=== PATIENT | male | born 1950 | race Caucasian/White ===

== ENCOUNTER 2019-05-07 19:27 | Emergency (ER) | payer BC, MEDICARE ==
[~2019-05-07] VITALS: Ht 175.3 cm; Wt 75.3 kg
[2019-05-07 20:14] LABS: Basophils # (auto) 0 uL; Eosinophils # (auto) 0.2 uL; Lymphocytes # (auto) 1.3 uL; Monocytes # (auto) 0.5 uL
[2019-05-07 20:15] LABS: Basophils % (auto) 0.7 % (0.0-2.0); Eosinophils % (auto) 3.7 % (0.0-7.0); Hematocrit 38.9 % (41.0-53.0); Hemoglobin 13.2 g/dL (13.5-17.5); Lymphocytes % (auto) 27.3 % (10.0-50.0); Mean Corpuscular Hemoglobin 33.9 pg (28.0-32.0); Mean Corpuscular Hgb Conc. 33.8 g/dL (32.0-36.0); Mean Corpuscular Volume 100.3 fL (80.0-100.0); Monocytes % (auto) 9.3 % (0.0-12.0); Neutrophils # (auto) 2.9 uL; Nucleated Red Blood Cells % 0.3 %; Platelet Count (auto) 75 10^3/uL (140-450); Red Blood Cells 3.88 10^6/uL (4.5-5.90); Red Cell Distribution Width 14.4 % (11.8-14.3); White Blood Cell 4.9 10^3/uL (4.4-10.8)
[2019-05-07 20:46] LABS: Albumin 3.1 g/dL (3.4-5.0); BUN/Creatinine Ratio 13.5; Bilirubin, Total 1.2 mg/dL (0.2-1.0); Calcium 8.7 mg/dL (8.5-10.1); Total Protein 7.9 g/dL (6.4-8.2)
[2019-05-07 23:35] VITALS: BP 184/87
[2019-05-08] MEDS ORDERED: ONDANSETRON HCL 4 MG/2 ML VIAL IV ONE (00:15)
[2019-05-08] MEDS ORDERED: MORPHINE SULFATE 4 MG/ML SYR/VIAL IV ONE (00:15)
[2019-05-08] MEDS ORDERED: IOHEXOL 300 MG/ML 100ML BOTTLE IJ ONE (00:21)
[2019-05-08 01:33] LABS: Urine Bacteria NONE SEEN /hpf (None Seen); Urine Blood TRACE /uL (Negative); Urine WBC <1 /hpf (0 - 3)
[2019-05-08] MEDS ORDERED: cloNIDine HCL 0.1 MG TAB PO ONE (01:45)
== END 2019-05-08 02:53 | disposition home or self-care (01) ==
LOC: ER 19:37
DX: K70.31 Alcoholic cirrhosis of liver with ascites (principal); K42.9 Umbilical hernia without obstruction or gangrene; R16.0 Hepatomegaly, not elsewhere classified
CPT/HCPCS: 36415; 74176; 74177; 80053; 80320; 81001; 83690; 85025; 96374; 96375; 99284; J2270; J2405; Q9967

== ENCOUNTER → 2019-06-17 | Outpatient (CLI) | payer BC, MEDICARE ==
[2019-06-17 08:34] LABS: Basophils # (auto) 0 uL; Basophils % (auto) 0.6 % (0.0-2.0); Eosinophils # (auto) 0.1 uL; Eosinophils % (auto) 1.5 % (0.0-7.0); Hematocrit 38.5 % (41.0-53.0); Hemoglobin 13.1 g/dL (13.5-17.5); Lymphocytes # (auto) 1.7 uL; Lymphocytes % (auto) 23.5 % (10.0-50.0); Mean Corpuscular Hemoglobin 33.7 pg (28.0-32.0); Mean Corpuscular Hgb Conc. 34.1 g/dL (32.0-36.0); Mean Corpuscular Volume 98.7 fL (80.0-100.0); Monocytes # (auto) 0.8 uL; Monocytes % (auto) 10.6 % (0.0-12.0); Neutrophils # (auto) 4.7 uL; Neutrophils % (auto) 63.8 % (37.0-80.0); Nucleated Red Blood Cells % 0.1 %; Platelet Count (auto) 93 10^3/uL (140-450); Red Blood Cells 3.91 10^6/uL (4.5-5.90); Red Cell Distribution Width 14.3 % (11.8-14.3); White Blood Cell 7.4 10^3/uL (4.4-10.8)
[2019-06-17 08:44] LABS: Albumin 2.9 g/dL (3.4-5.0); Calcium 8.8 mg/dL (8.5-10.1); Potassium 4.6 mmol/L (3.5-5.1)
[2019-06-17 08:47] LABS: Bilirubin, Total 1.9 mg/dL (0.2-1.0); Total Protein 8.3 g/dL (6.4-8.2)
== END | disposition home or self-care (01) ==
LOC: LAB 08:09
PROVIDERS: ATTEND Internal Medicine
DX: I10 Essential (primary) hypertension (principal)
CPT/HCPCS: 36415; 80053; 85025

== ENCOUNTER 2019-07-02 10:12 | Inpatient (IN) | payer BC, MEDICARE ==
[~2019-07-02] VITALS: Ht 175.3 cm; Wt 71.8 kg
[2019-07-02 11:43] LABS: Basophils # (auto) 0 uL; Basophils % (auto) 0.5 % (0.0-2.0); Eosinophils # (auto) 0.1 uL; Eosinophils % (auto) 0.6 % (0.0-7.0); Hemoglobin 13.6 g/dL (13.5-17.5); Lymphocytes # (auto) 1.2 uL; Lymphocytes % (auto) 15.4 % (10.0-50.0); Mean Corpuscular Hemoglobin 33.4 pg (28.0-32.0); Mean Corpuscular Hgb Conc. 33.9 g/dL (32.0-36.0); Mean Corpuscular Volume 98.4 fL (80.0-100.0); Monocytes # (auto) 0.7 uL; Monocytes % (auto) 8.3 % (0.0-12.0); Neutrophils % (auto) 75.2 % (37.0-80.0); Nucleated Red Blood Cells % 0.2 %; Platelet Count (auto) 91 10^3/uL (140-450); Red Blood Cells 4.07 10^6/uL (4.5-5.90); Red Cell Distribution Width 14.9 % (11.8-14.3)
[2019-07-02] MEDS ORDERED: SODIUM CHLORIDE 0.9% 1,000 ML IVB ONE (11:53)
[2019-07-02 13:31] LABS: Alanine Aminotransferase 56 U/L (16-61); Albumin 2.6 g/dL (3.4-5.0); Anion Gap 6 (5-15); Aspartate Aminotransferase 177 U/L (15-37); BUN/Creatinine Ratio 18.9; Blood Urea Nitrogen 44 mg/dL (7-18); Calcium 9.1 mg/dL (8.5-10.1); Carbon Dioxide 25 mmol/L (21-32); Chloride 104 mmol/L (98-107); GFR African American 36 mL/min; GFR Non-African American 30 mL/min; Glucose 124 mg/dL (74-106); Potassium 4.8 mmol/L (3.5-5.1); Sodium 135 mmol/L (136-145)
[2019-07-02 13:37] LABS: Alkaline Phosphatase 103 U/L (45-117); Bilirubin, Total 1.7 mg/dL (0.2-1.0); Total Protein 8.6 g/dL (6.4-8.2)
[2019-07-02 13:40] LABS: Magnesium 2.2 mg/dL (1.6-2.6)
[2019-07-02 14:11] LABS: Urine WBC None Seen /hpf (0 - 3)
[2019-07-02 14:41] LABS: Urine Bacteria FEW /hpf (None Seen); Urine Blood Negative /uL (Negative); Urine Hyaline Cast MANY /lpf (0 - 2); Urine Mucus FEW (None Seen); Urine Specific Gravity 1.018 (1.001-1.035)
[2019-07-02] MEDS ORDERED: LACTULOSE 20Gm/30ML SOLN PO ONE (14:45)
[2019-07-02] MEDS ORDERED: NITROGLYCERIN 0.4 MG SL TAB SL PRN (15:30)
[2019-07-02] MEDS ORDERED: MORPHINE SULF INJ 2 MG/ML SYRINGE 1ML IV PRN ×2 (15:30)
[2019-07-02] MEDS ORDERED: ACETAMINOPHEN 500 MG TAB PO PRN (15:30)
[2019-07-02] MEDS ORDERED: ONDANSETRON HCL 4 MG/2 ML VIAL IV PRN (15:30)
[2019-07-02] MEDS: SODIUM CHLORIDE 0.9% 1,000 ML IV SCH (17:19)
[2019-07-02] MEDS: LACTULOSE 20Gm/30ML SOLN PO SCH (18:18)
--- NOTE | 2019-07-02 19:25 | NUR ---
Opening Shift Note Assumed care of patient, Patient standing in bathroom with Tele box and gown off, Patient cleaning vomit off of his chest. Patient stated he ate a sandwich and threw it up. Assisted patient in cleaning up, helped patient back to bed reapplied tele box and clean gown. Alert x3 no S/S of distress/SOB on room air. Denies pain. Patient has large ABD, patient will have possible paracentesis. Oncology consult for hepatic cancer pending. Bed locked in lowest position call light within reach bed alarm on. Instructed on POC and to call for assist PRN, will continue to monitor for changes PRN.
[2019-07-02 22:03] VITALS: BP 104/60
[2019-07-03] MEDS: LACTULOSE 20Gm/30ML SOLN PO SCH ×4 (00:02→18:01)
[2019-07-03] MEDS: SODIUM CHLORIDE 0.9% 1,000 ML IV SCH ×3 (03:00→18:01)
[2019-07-03 04:47] VITALS: BP 105/64
--- NOTE | 2019-07-03 05:19 | NUR ---
BM Patient had BM accidently in bed. Patient's own clothing/ pants placed in bag, put in side dresser. Assisted patient with cleaning up BM. Complete bedding and gown change. Patient back in bed with bed alarm.
--- NOTE | 2019-07-03 06:50 | NUR ---
PATIENT AMBULATED TO BATHROOM WITH STEADY GAIT RN STANDBY ASSISTANCE.
[2019-07-03 07:02] LABS: Alanine Aminotransferase 52 U/L (16-61); Albumin 2.4 g/dL (3.4-5.0); Anion Gap 11 (5-15); Blood Urea Nitrogen 41 mg/dL (7-18); Calcium 8.2 mg/dL (8.5-10.1); Carbon Dioxide 19 mmol/L (21-32); Chloride 107 mmol/L (98-107); GFR African American 47 mL/min; GFR Non-African American 38 mL/min; Glucose 80 mg/dL (74-106); Lipase 68 U/L (73-393); Potassium 4.1 mmol/L (3.5-5.1); Sodium 137 mmol/L (136-145)
[2019-07-03 07:05] LABS: Alkaline Phosphatase 103 U/L (45-117); Aspartate Aminotransferase 162 U/L (15-37); Bilirubin, Total 1.6 mg/dL (0.2-1.0)
[2019-07-03 08:00] VITALS: BP 113/62
[2019-07-03 09:18] LABS: INR 1.48 (0.9-1.15); Partial Thromboplastin Time 32.5 sec (23.64-32.05)
[2019-07-03] MEDS: FAMOTIDINE 20 MG TAB PO SCH (09:31)
[2019-07-03 12:00] VITALS: BP 116/74
[2019-07-03 13:13] LABS: Hepatitis B Core IgM Negative
[2019-07-03 13:20] LABS: Hepatitis B Surface Antigen Negative (Negative)
[2019-07-03 13:22] LABS: Hepatitis C Antibody Positive (Negative)
[2019-07-03 17:00] VITALS: BP 119/77
--- NOTE | 2019-07-03 17:15 | NUR ---
PT REPORTS THAT HE WALKS FINE AND DOES NOT NEED P.T.
--- NOTE | 2019-07-03 19:30 | NUR ---
Opening Shift Note Assumed care of patient. Patient is awake and alert. No S/S of distress/SOB or pain. Instructed on POC and to call for assist PRN, will continue to monitor for changes. Bed locked in lowest position and bed rails up x2. Call light within reach.
[2019-07-03 22:00] VITALS: BP 111/64
--- NOTE | 2019-07-03 23:40 | NUR ---
Medication held Lactulose medication held. Patient mentioned that he needed to use a restroom again and make a bowel movement. He also mentioned that he has had frequent loose bowel movements today. Addendum: 07/04/19 at 0036 by MARY DUBON RN RN Patient agreed to take his next dose due in the a.m. Lactulose level currently at 30. Will continue to monitor for changes.
--- NOTE | 2019-07-04 | NUR ---
Upon entrance of room, patient was standing near bed and stated "my iv came out". IV was no longer intact and pressure was applied to IV site to control bleeding.
[2019-07-04 05:00] VITALS: BP 111/68
[2019-07-04] MEDS: SODIUM CHLORIDE 0.9% 1,000 ML IV SCH ×2 (06:04→16:00)
[2019-07-04] MEDS: LACTULOSE 20Gm/30ML SOLN PO SCH ×4 (06:04→18:27)
[2019-07-04 06:11] LABS: Basophils # (auto) 0 uL; Eosinophils # (auto) 0 uL; Eosinophils % (auto) 0.7 % (0.0-7.0); Hemoglobin 12.2 g/dL (13.5-17.5); Mean Corpuscular Hemoglobin 33.8 pg (28.0-32.0); Mean Corpuscular Hgb Conc. 33.2 g/dL (32.0-36.0); Mean Corpuscular Volume 101.7 fL (80.0-100.0); Monocytes # (auto) 0.4 uL; Platelet Count (auto) 70 10^3/uL (140-450); Red Cell Distribution Width 15.4 % (11.8-14.3)
[2019-07-04 06:14] LABS: Albumin 2.4 g/dL (3.4-5.0); Basophils % (auto) 0.8 % (0.0-2.0); Calcium 8.5 mg/dL (8.5-10.1); Hematocrit 36.7 % (41.0-53.0); Magnesium 2.5 mg/dL (1.6-2.6); Monocytes % (auto) 7.3 % (0.0-12.0); Neutrophils # (auto) 4.5 uL; Neutrophils % (auto) 75.2 % (37.0-80.0); Nucleated Red Blood Cells % 0.2 %; Red Blood Cells 3.61 10^6/uL (4.5-5.90)
[2019-07-04 06:17] LABS: Bilirubin, Total 1.9 mg/dL (0.2-1.0); Total Protein 8.3 g/dL (6.4-8.2)
[2019-07-04 06:26] LABS: INR 1.41 (0.9-1.15)
--- NOTE | 2019-07-04 07:50 | NUR ---
OPENING NOTE Assumed care of patient from NOC RN, Alejandro. Patient awake and alert with no S/S of distress/SOB. C/O of abdominal pain 8/10 on adult pain scale, explained pain medication will likely not help with pain since pain is secondary to ascites. Patient agreed. Helped patient reposition self, states helped some with discomfort. Instructed on POC and to call for assistance PRN, verbalized understanding. Bed in lowest, locked position with side rails up x2. Fall precautions in place and call light within reach. Will continue to monitor for changes Q1hr and PRN.
[2019-07-04 09:00] VITALS: BP 107/69
--- NOTE | 2019-07-04 09:51 | NUR ---
OFF UNIT Patient taken off unit via wheelchair for paracentesis. No S/S of distress noted.
--- NOTE | 2019-07-04 10:20 | NUR ---
PTIN ULTRASOUND FOR A PARACENTESIS BY DR PUCKETT. VSS 136/79-71-18-92%. 1035: 119/56-72-18-92%. 1050: 115/68-67-17-95%. FINISHED WITH PROCEDURE. PT TOLERATED WELL. 7500 ML OF ASCITES FLUID REMOVED.
[2019-07-04] MEDS ORDERED: SODIUM CHLORIDE 0.9% 1,000 ML IV SCH (11:15)
[2019-07-04] MEDS: FAMOTIDINE 20 MG TAB PO SCH (11:52)
[2019-07-04 13:00] VITALS: BP 124/73
--- NOTE | 2019-07-04 13:27 | NUR ---
ROUNDS Patient resting in bed, daughter at bedside. No S/S of distress noted.
--- NOTE | 2019-07-04 16:43 | NUR ---
ROUNDS Patient resting in bed watching television, no S/S of distress noted. Will continue to monitor.
[2019-07-04 17:16] VITALS: BP 105/76
--- NOTE | 2019-07-04 19:33 | NUR ---
CLOSING NOTE Endorsed care of patient to NOC Zenaida SAINI.
[2019-07-04 22:00] VITALS: BP 121/81
[2019-07-04] MEDS: SODIUM BICARBONATE 650 MG TAB PO SCH (22:50)
[2019-07-05] MEDS: LACTULOSE 20Gm/30ML SOLN PO SCH ×4 (00:25→18:40)
[2019-07-05 05:44] VITALS: BP 111/63
[2019-07-05 06:40] LABS: Albumin 2.3 g/dL (3.4-5.0); Calcium 8.4 mg/dL (8.5-10.1); Potassium 3.7 mmol/L (3.5-5.1)
[2019-07-05 06:44] LABS: BUN/Creatinine Ratio 24.2; Bilirubin, Total 1.5 mg/dL (0.2-1.0); Total Protein 8.1 g/dL (6.4-8.2)
--- NOTE | 2019-07-05 07:30 | NUR ---
Opening Shift Note Assumed care of patient, awake and alert. No S/S of distress/SOB or pain. Instructed on POC and to call for assist PRN, will continue to monitor for changes Q1hr and PRN.
[2019-07-05 09:00] VITALS: BP 120/73
[2019-07-05] MEDS: SODIUM BICARBONATE 650 MG TAB PO SCH ×2 (09:11→22:03)
[2019-07-05] MEDS: FAMOTIDINE 20 MG TAB PO SCH (09:11)
--- NOTE | 2019-07-05 10:00 | NUR ---
IV removal IV DC'd with clean sterile technique, catheter fully intact. Pressure dressing applied to site. Patient tolerated well. NOTE: IV LEAKING.
--- NOTE | 2019-07-05 12:39 | NUR ---
NUTRITION ASSESSMENT NOTES Please refer to link notes of nutrition screen form filed under the intervention section of the plan of care for further details. Est. Needs: 2100 kcal to 2450 kcal (30-35 kcal/kgBW), 56 gms to 71 gms pro (0.8-1.0 gms/kgBW). Will continue to monitor pertinent labs and reassess nutrient need prn Thank you. Addendum: 07/05/19 at [address] Amended: Links added.
[2019-07-05 13:00] VITALS: BP 121/84
[2019-07-05] MEDS ORDERED: PROP10TA57 PO (13:32)
[2019-07-05] MEDS ORDERED: SPIR50TA5 PO (13:32)
[2019-07-05] MEDS ORDERED: FURO20TA3 PO (13:32)
[2019-07-05] MEDS ORDERED: ONDA-144 PO (13:34)
--- NOTE | 2019-07-05 14:00 | NUR ---
IV insertion ATTEMPT UNSUCCESSFUL./ MIDLINE ORDER OBTAINED MIDLINE INSERTION ORDER FROM DR LEDEZMA. PER OBSTETRICS NURSE, NO MIDLINE RN AVAILABLE TODAY. WILL PAGE THEM IN THE MORNING. CONSTRUCTION MILLWRIGHT WILL TRY TO INSERT AN IV ON PT TODAY.
--- NOTE | 2019-07-05 14:40 | NUR ---
DR DOMINGUEZ AT BEDSIDE. SPOKE TO PT AND PT'S DAUGHTER.
[2019-07-05] MEDS: SPIRONOLACTONE 25 MG TAB PO SCH (15:27)
[2019-07-05] MEDS: FUROSEMIDE 20 MG TAB PO SCH (15:27)
[2019-07-05 17:04] VITALS: BP 106/57
--- NOTE | 2019-07-05 18:30 | NUR ---
IV insertion IV access obtained, via clean sterile technique by inserting 22 gauge catheter at LEFT ARM BY TANA,HOME RESTORATION SERVICE SUPERVISOR. IV secured properly. No trauma to site. Patient tolerated well. NOTE:
[2019-07-05] MEDS: SODIUM CHLORIDE 0.9% 1,000 ML IV SCH (18:40)
[2019-07-05 22:00] VITALS: BP 118/76
[2019-07-05] MEDS: PROPRANOLOL HCL 20 MG TAB PO SCH (22:03)
[2019-07-06] MEDS: LACTULOSE 20Gm/30ML SOLN PO SCH ×5 (00:35→18:14)
[2019-07-06 05:59] LABS: Basophils # (auto) 0 uL; Basophils % (auto) 0.3 % (0.0-2.0); Eosinophils # (auto) 0.1 uL; Eosinophils % (auto) 1.3 % (0.0-7.0); Hematocrit 38.3 % (41.0-53.0); Lymphocytes # (auto) 1.1 uL; Lymphocytes % (auto) 17.9 % (10.0-50.0); Mean Corpuscular Hemoglobin 33.1 pg (28.0-32.0); Mean Corpuscular Volume 97.4 fL (80.0-100.0); Monocytes # (auto) 0.5 uL; Monocytes % (auto) 7.9 % (0.0-12.0); Neutrophils # (auto) 4.5 uL; Neutrophils % (auto) 72.6 % (37.0-80.0); Nucleated Red Blood Cells % 0.2 %; Platelet Count (auto) 63 10^3/uL (140-450); Red Blood Cells 3.93 10^6/uL (4.5-5.90); Red Cell Distribution Width 14.7 % (11.8-14.3); White Blood Cell 6.2 10^3/uL (4.4-10.8)
[2019-07-06 06:02] VITALS: BP 115/65
[2019-07-06 06:20] LABS: Calcium 8.2 mg/dL (8.5-10.1); Potassium 3.7 mmol/L (3.5-5.1)
--- NOTE | 2019-07-06 07:30 | NUR ---
Opening Shift Note RECEIVED REPORT FROM NOC RN. Assumed care of patient, awake and alert. No S/S of distress/SOB or pain. BED IN LOWEST, LOCKED POSITION WITH SIDERAILS UP x2 AND CALL LIGHT WITHIN REACH. Instructed on POC and to call for assist PRN, will continue to monitor for changes Q1hr and PRN.
[2019-07-06] MEDS: PROPRANOLOL HCL 20 MG TAB PO SCH ×2 (10:39→21:54)
[2019-07-06] MEDS: SPIRONOLACTONE 25 MG TAB PO SCH (10:39)
[2019-07-06] MEDS: SODIUM BICARBONATE 650 MG TAB PO SCH ×2 (10:39→21:54)
[2019-07-06] MEDS: FAMOTIDINE 20 MG TAB PO SCH (10:40)
[2019-07-06] MEDS: FUROSEMIDE 20 MG TAB PO SCH (10:42)
[2019-07-06 13:00] VITALS: BP 114/84
[2019-07-06] MEDS: SODIUM CHLORIDE 0.9% 1,000 ML IV SCH (15:30)
[2019-07-06 17:08] VITALS: BP 118/76
[2019-07-06 22:00] VITALS: BP 110/66
[2019-07-07] MEDS: LACTULOSE 20Gm/30ML SOLN PO SCH ×4 (05:33→18:00)
[2019-07-07 06:08] VITALS: BP 109/50
[2019-07-07 06:41] LABS: BUN/Creatinine Ratio 24.2; Calcium 8.4 mg/dL (8.5-10.1); Potassium 3.9 mmol/L (3.5-5.1)
[2019-07-07 09:00] VITALS: BP 121/70
[2019-07-07 10:08] LABS: Hepatitis B Surface Antibody Negative
[2019-07-07 10:43] LABS: Hepatitis A Total Antibody Positive
[2019-07-07] MEDS: FAMOTIDINE 20 MG TAB PO SCH (10:46)
[2019-07-07] MEDS: SODIUM BICARBONATE 650 MG TAB PO SCH ×2 (10:46→22:16)
[2019-07-07] MEDS: PROPRANOLOL HCL 20 MG TAB PO SCH ×2 (10:47→22:17)
[2019-07-07] MEDS: rifAXIMin 550 MG TAB PO SCH ×2 (11:30→22:17)
[2019-07-07 12:46] VITALS: BP 120/76
[2019-07-07 13:23] LABS: Hepatitis B Surface Antigen Negative (Negative)
[2019-07-07 13:26] LABS: Hepatitis B Core Total AB Positive
[2019-07-07 13:27] LABS: Hepatitis C Antibody Positive (Negative)
[2019-07-07] MEDS ORDERED: GADOTERIDOL 279.3mg/mL 20ml Vial IV ONE (13:54)
[2019-07-07] MEDS: SODIUM CHLORIDE 0.9% 1,000 ML IV SCH (15:14)
--- NOTE | 2019-07-07 16:33 | NUR ---
Assessment and ss consult Pt is 69 yr old alert and oriented male. SS consult given for "d/c planning." Pt lives with family members and has a daughter, Halley, who assists with ADL's, cooking and cleaning and is his emergency contact at [phone]. Prior to admit, and currently, pt was ambulatory. Pt was admitted with a new diagnosis of a "liver cancer." Pt stated that he is doing alright emotionally and will receive tx as an outpatient with a specialist. Pt gets $2,200 monthly through ss and nursing home and has no AD on file. Pt's daughter will transport pt home upon d/c. Pt will d/c home upon medical clearance. Pt stated that he has no needs or concerns at this time. Addendum: 07/07/19 at 1641 by RUPALI VASQUEZ Amended: Links added.
[2019-07-07 17:03] VITALS: BP 101/59
[2019-07-07] MEDS: HYDROcodone-ACET 5/325MG TAB PO PRN (19:31)
--- NOTE | 2019-07-07 19:40 | NUR ---
Opening Shift Note Assumed care of patient, AOx4. No S/S of distress/SOB or pain. Fall and safety precautions in place. Call light within reach. Instructed on POC and to call for assist PRN, will continue to monitor for changes Q1hr and PRN.
[2019-07-07] MEDS ORDERED: TEMAZEPAM 15 MG CAP PO ONE (21:00)
[2019-07-07 22:00] VITALS: BP 102/69
[2019-07-08 05:00] VITALS: BP 125/69
[2019-07-08] MEDS: LACTULOSE 20Gm/30ML SOLN PO SCH ×6 (05:09→23:18)
[2019-07-08 08:00] VITALS: BP 98/48
[2019-07-08 08:02] LABS: Calcium 8.5 mg/dL (8.5-10.1); Potassium 4.3 mmol/L (3.5-5.1)
[2019-07-08 08:04] LABS: BUN/Creatinine Ratio 21.4
[2019-07-08 09:07] VITALS: BP 98/48
[2019-07-08] MEDS: PROPRANOLOL HCL 20 MG TAB PO SCH ×2 (09:41→21:23)
[2019-07-08] MEDS: FAMOTIDINE 20 MG TAB PO SCH (09:42)
[2019-07-08] MEDS: rifAXIMin 550 MG TAB PO SCH ×2 (09:42→21:24)
[2019-07-08] MEDS: SODIUM BICARBONATE 650 MG TAB PO SCH ×2 (09:43→21:24)
[2019-07-08] MEDS ORDERED: LACT10SO3 PO (11:30)
[2019-07-08] MEDS ORDERED: RIFA550T PO (11:30)
[2019-07-08] MEDS ORDERED: SODI650T PO (11:32)
[2019-07-08 12:10] LABS: Basophils # (auto) 0 uL; Basophils % (auto) 0.4 % (0.0-2.0); Eosinophils # (auto) 0.1 uL; Eosinophils % (auto) 1.3 % (0.0-7.0); Hematocrit 41.3 % (41.0-53.0); Lymphocytes # (auto) 1.2 uL; Lymphocytes % (auto) 16.1 % (10.0-50.0); Mean Corpuscular Hemoglobin 33.6 pg (28.0-32.0); Mean Corpuscular Hgb Conc. 33.8 g/dL (32.0-36.0); Mean Corpuscular Volume 99.3 fL (80.0-100.0); Monocytes # (auto) 0.6 uL; Monocytes % (auto) 7.7 % (0.0-12.0); Neutrophils # (auto) 5.6 uL; Neutrophils % (auto) 74.5 % (37.0-80.0); Nucleated Red Blood Cells % 0.3 %; Platelet Count (auto) 84 10^3/uL (140-450); Red Blood Cells 4.16 10^6/uL (4.5-5.90); Red Cell Distribution Width 15.3 % (11.8-14.3); White Blood Cell 7.6 10^3/uL (4.4-10.8)
--- NOTE | 2019-07-08 12:23 | NUR ---
Nutrition Follow-up Notes Wt.: 70.3 kg based on bed scale as of yesterday Pt's asleep, no immediate family member at bedside during rounds this morning. Pt's no signs of distress noted earlier, currently on Hepatic diet (50 gms pro, 2 gms Na) diet with fair PO intake aeb 60% ave. consumed meals (x6) in last 2.5 days. Noted pt's for active GI consult. Est. Needs: 2100 kcal to 2450 kcal (30-35 kcal/kgBW), 56 gms to 71 gms pro (0.8-1.0 gms/kgBW). Will continue to monitor pertinent labs and reassess nutrient need prn Labs:Na 134 L, CO2 19 L, BUN 33 H, Cr 1.54 H, Ammonia 65 H, Alb 2.3 L; Tot annette 1.5 H, AST 150 H, ALP 126 H Skin: Tod scale 20, low risk, skin intact per infrastructure design engineer. GI: Pt had 2x BM this morning per infrastructure design engineer. PES: Increased nutrient needs r/t acute/chronic medical condition aeb Hepatic encephalopathy,Liver carcinoma,Thrombocytopenia,Ascites, severe hypoalbuminemia, <75% consumed meals Altered nutrition related lab values r/t current/chronic medical condition aeb hypocapnia, hyperchloremia, elev. BUN, LFTs, hyperbilirubinemia, hypocalcemia and severe hypoalbuminemia Will continue to monitor PO intake, skin status, pertinent labs and weight trend. F/u in 3 to 5 days. Rec.: 1.) Pls enter order for Soft Low Fat, Hepatic diet (50 gms pro, 2 gms Na) diet with Ensure Enlive 1 carton BID, already e-signed approved by . 2.) If Albumin continues trending down with improved ammonia level, consider Prostat 1 pkt BID. 3.) Continue close supervision and feeding assistance prn during meals. 4.) Refer pt to RD for further nutrition education and weight monitoring upon discharge. 5.) Continue current plan of care.
[2019-07-08 12:45] VITALS: BP 122/60
[2019-07-08] MEDS ORDERED: TEMAZEPAM 15 MG CAP PO PRN (15:00)
[2019-07-08] MEDS: SODIUM CHLORIDE 0.9% 1,000 ML IV SCH (15:00)
[2019-07-08] MEDS: HYDROcodone-ACET 5/325MG TAB PO PRN (16:26)
[2019-07-08 16:49] VITALS: BP 104/59
[2019-07-08 22:00] VITALS: BP 105/60
--- NOTE | 2019-07-08 23:44 | NUR ---
Patient refusing med Patient refusing to take lactulose. Patient educated on importance of medication. Patient verbalized understanding and still refusing to take medication. Will continue to monitor.
[2019-07-09 05:00] VITALS: BP 117/67
[2019-07-09] MEDS: LACTULOSE 20Gm/30ML SOLN PO SCH ×3 (05:31→18:20)
[2019-07-09 08:00] LABS: INR 1.53 (0.9-1.15)
[2019-07-09 08:09] LABS: Calcium 8.4 mg/dL (8.5-10.1); Potassium 4.1 mmol/L (3.5-5.1)
[2019-07-09 08:12] LABS: BUN/Creatinine Ratio 24.1
[2019-07-09 09:00] VITALS: BP 102/44
[2019-07-09] MEDS: FAMOTIDINE 20 MG TAB PO SCH (09:54)
[2019-07-09] MEDS: rifAXIMin 550 MG TAB PO SCH (09:54)
[2019-07-09] MEDS: PROPRANOLOL HCL 20 MG TAB PO SCH (09:55)
[2019-07-09] MEDS: SODIUM BICARBONATE 650 MG TAB PO SCH (09:55)
--- NOTE | 2019-07-09 12:30 | NUR ---
REGARDING COAGULATION STUDY: SPOKE TO YENY RAMIREZ IN RADIOLOGY REGARDING RECENT COAG LEVELS. STATED SHE WILL INFORM Jade.
[2019-07-09 13:00] VITALS: BP 101/50
--- NOTE | 2019-07-09 13:00 | NUR ---
PT IN ULTRASOUND FOR A PARACENTESIS BY DR PUCKETT. VSS 135/89-64-16-95%. 1315: 120/72-60-17-95%. 1330: 118/72-62-16-95%. 1345: 114/74-57-16-96%. FINISHED WITH PROCEDURE. 7350 ML OF ASCITES FLUID REMOVED. PT TOLERATED PROCEDURE WELL.
--- NOTE | 2019-07-09 15:10 | NUR ---
REGARDING PRIOR AUTH SPOKE TO MARCO ANTONIO REGARDING PRIOR AUTH, PER MARC OANTONIO CM PATIENT IS A [facility] FULL RISK PATIENT, PATIENT DOES NOT HAVE INSURANCE CARD ON HAND AND DAUGTHER IS NOT ANSWERING PHONE. [facility] STATES THEY DO NOT HAVE RECORD OF THE PATIENT SO CASE SENT TO [facility]. SPOKE TO [facility] STATED SHE WOULD GIVE ME A CALL BACK.
[2019-07-09] MEDS: SODIUM CHLORIDE 0.9% 1,000 ML IV SCH (16:13)
[2019-07-09 17:00] VITALS: BP 112/70
--- NOTE | 2019-07-09 17:03 | NUR ---
Wale received for po Xifaxan 500mg BID with co-pay of $8.50. [facility] processing . Mark SAINI informed. Attempt to contact Dr. Vallejo @ ext [phone] to inform no answer.
--- NOTE | 2019-07-09 17:15 | NUR ---
REGARDING MEDICATION SPOKE TO KIM REGARDING PRIOR AUTH. PATIENT WAS ABLE TO RECIEVE MEDICATION TODAY. MEDICATION XIFAXIN BROUGHT UP TO PATIENT BEDISDE ALONG WITH ALL OTHER PRESCRIBED MEDICATION.
--- NOTE | 2019-07-09 18:00 | NUR ---
REGARDING DISCHARGE: CALLED DAUGHTER LET VOICE MESSAGE.
--- NOTE | 2019-07-09 18:22 | NUR ---
REGARDING DISCHARGE: CALLED AND SPOKE TO DAUGHTER. STATED SHE WOULD BE HERE IN 20 MINUTES.
--- NOTE | 2019-07-09 18:58 | NUR ---
Discharge instructions given as ordered. Encourage to follow up with PMD as instructed. Patient and daughter instructed on all appointments and new medications. Instructed to follow up for lab draw with prescription provided. All questions and concerns addressed. Patient verbalized understanding. IV removed with catheter intact, pressure dressing applied. Telemetry unit returned to ICU. Patient taken to vehicle via wheelchair with all personal belongings, accompanied by staff and family member. No distress noted at time of departure.
== END 2019-07-09 18:58 | disposition home or self-care (01) | DRG 441 ==
LOC: ER 10:12 → TELE 10:13 → TELE-WESTW 18:22
PROVIDERS: ADMIT Nurse Practitioner Acute Care; ATTEND Internal Medicine
PROC: 0W9G3ZZ Drainage of Peritoneal Cavity, Percutaneous Approach (ICD-10-PCS; principal; 2019-07-04)
PROC: 0W9G3ZZ Drainage of Peritoneal Cavity, Percutaneous Approach (ICD-10-PCS; 2019-07-09)
DX: K72.90 Hepatic failure, unspecified without coma (principal); K76.7 Hepatorenal syndrome; G93.41 Metabolic encephalopathy; C22.0 Liver cell carcinoma; R18.8 Other ascites; E44.0 Moderate protein-calorie malnutrition; N17.9 Acute kidney failure, unspecified; E87.2 Acidosis; K74.60 Unspecified cirrhosis of liver; D69.6 Thrombocytopenia, unspecified; N18.3 Chronic kidney disease, stage 3 (moderate); B19.20 Unspecified viral hepatitis C without hepatic coma; I12.9 Hypertensive chronic kidney disease with stage 1 through stage 4 chronic kidney disease, or unspecified chronic kidney disease; Z85.05 Personal history of malignant neoplasm of liver; Z68.23 Body mass index [BMI] 23.0-23.9, adult
CPT/HCPCS: 10022; 36415; 49083; 70450; 71045; 74183; 76705; 76775; 76942; 80048; 80053; 80074; 80320; 81001; 82105; 82140; 82150; 82378; 83615; 83690; 83735; 84484; 84702; 85025; 85610; 85730; 86301; 86704; 86706; 86708; 86803; 87340; 93005; 96360; 96361; G0378

== ENCOUNTER 2019-07-13 04:50 | Inpatient (IN) | payer BC ==
[~2019-07-13] VITALS: Ht 172.7 cm; Wt 57.8 kg
[~2019-07-13 04:50] MED LIST: LACT10SO3 PO; ONDA-144 PO; PROP10TA57 PO; RIFA550T PO; SODI650T PO
[2019-07-13] MEDS ORDERED: SODIUM CHLORIDE 0.9% 1,000 ML IV ONE ×2 (06:36→10:30)
[2019-07-13] MEDS ORDERED: SODIUM CHLORIDE 0.9% 500 ML IVB ONE (06:36)
[2019-07-13 07:22] LABS: Urine Bacteria FEW /hpf (None Seen); Urine Blood 1+ /uL (Negative); Urine Hyaline Cast MANY /lpf (0 - 2); Urine Mucus FEW (None Seen); Urine Specific Gravity 1.019 (1.001-1.035); Urine WBC 4 /hpf (0 - 3)
[2019-07-13 07:26] LABS: Alcohol, Urine < 3.0 mg/dL (0-5); Amphetamine Screen, Urine NEGATIVE (NEGATIVE); Barbiturate Scree,Urine NEGATIVE (NEGATIVE); Benzodiazephine Screen, Urine NEGATIVE (NEGATIVE); Cannabinoid Screen, Urine NEGATIVE (NEGATIVE); Cocaine Screen, Urine NEGATIVE (NEGATIVE); Opiate Scree,Urine NEGATIVE (NEGATIVE); Phencyclidine Screen, Urine NEGATIVE (NEGATIVE)
[2019-07-13] MEDS ORDERED: FURO20TA3 PO (08:44)
[2019-07-13] MEDS ORDERED: SPIR50TA5 PO (08:46)
[2019-07-13 09:39] LABS: Hematocrit 33.9 % (41.0-53.0); Hemoglobin 11.5 g/dL (13.5-17.5); Mean Corpuscular Hemoglobin 33.3 pg (28.0-32.0); Mean Corpuscular Volume 97.9 fL (80.0-100.0); Platelet Count (auto) 114 10^3/uL (140-450); Red Blood Cells 3.47 10^6/uL (4.5-5.90); Red Cell Distribution Width 15.4 % (11.8-14.3); White Blood Cell 16.6 10^3/uL (4.4-10.8)
[2019-07-13 09:41] LABS: Basophils % (manual) 0 (0.0-2.0); Blast Cells 0; Eosinophils % (manual) 0 (0-7); Promyelocytes % 0; Reactive Lymphocytes 0
[2019-07-13 09:46] LABS: Albumin 1.9 g/dL (3.4-5.0); Anion Gap 9 (5-15); Blood Alcohol < 3.0 mg/dL (0-5); Calcium 8.4 mg/dL (8.5-10.1); Carbon Dioxide 20 mmol/L (21-32); Chloride 106 mmol/L (98-107); Glucose 123 mg/dL (74-106); Lactic Acid w/Reflex 4.4 mmol/L (0.4-2.0); Magnesium 2.2 mg/dL (1.6-2.6); Sodium 135 mmol/L (136-145)
[2019-07-13 09:50] LABS: Alanine Aminotransferase 214 U/L (16-61); Alkaline Phosphatase 167 U/L (45-117); Aspartate Aminotransferase 888 U/L (15-37); BUN/Creatinine Ratio 56.5; Bilirubin, Total 1.7 mg/dL (0.2-1.0); GFR African American 45 mL/min; GFR Non-African American 37 mL/min; Total Protein 7.4 g/dL (6.4-8.2)
[2019-07-13 09:54] LABS: Blood Urea Nitrogen 109 mg/dL (7-18); Potassium 5.8 mmol/L (3.5-5.1)
[2019-07-13 10:09] LABS: Band Neutrophils % (manual) 3; Lymphocytes % (manual) 16 (10.0-50.0); Metamyelocytes % 1; Monocytes % (manual) 3 (0-12); Myelocytes % 2
[2019-07-13] MEDS ORDERED: ALBUTEROL SULF 2.5 MG/0.5ML(0.5%) NEB SOLN NEB ONE (10:15)
[2019-07-13] MEDS ORDERED: NITROGLYCERIN 0.4 MG SL TAB SL PRN (10:15)
[2019-07-13] MEDS ORDERED: MORPHINE SULF INJ 2 MG/ML SYRINGE 1ML IV PRN (10:15)
[2019-07-13] MEDS ORDERED: SODIUM BICARBONATE 8.4 % INJ 50ML VIAL IV ONE (10:15)
[2019-07-13] MEDS ORDERED: DEXTROSE (50%) 50ML SYRG IV ONE (10:15)
[2019-07-13] MEDS ORDERED: SODIUM BICARBONATE 50ML VIAL 50 ML in SOD CHL 0.45% 1,000 ML IV SCH (10:15)
[2019-07-13] MEDS ORDERED: cefTRIAXone 1GM/50ML D5W 50 ML IV ONE (10:15)
[2019-07-13] MEDS ORDERED: CALCIUM GLUC 4.65meq/50ml D5AE 50 ML IV ONE (10:15)
[2019-07-13] MEDS ORDERED: InsuLIN REG 1unit/0.01ml Soln (100units/ml) IV ONE (10:15)
[2019-07-13] MEDS ORDERED: LACTULOSE 20Gm/30ML SOLN PO ONE (11:30)
[2019-07-13] MEDS: OCTREOTIDE ACETATE 500 MCG in SODIUM CHL 0.9% 99 ML IV SCH ×2 (12:34→20:49)
[2019-07-13] MEDS: ALBUMIN 25% 50 ML IV SCH ×2 (12:35→19:31)
[2019-07-13] MEDS: SODIUM BICARBONATE 50ML VIAL 50 ML in SOD CHL 0.45% 1,000 ML IV SCH (12:35)
[2019-07-13 12:36] LABS: INR 1.68 (0.9-1.15); Partial Thromboplastin Time 33.8 sec (23.64-32.05)
[2019-07-13] MEDS: PIPERACILLIN-TAZOB 3.375GM 100 ML IV SCH ×2 (12:45→18:24)
[2019-07-13 13:34] LABS: BUN/Creatinine Ratio 58.1; Calcium 8.1 mg/dL (8.5-10.1); Potassium 4.6 mmol/L (3.5-5.1)
[2019-07-13 19:23] LABS: Protein, Urine 15.4 mg/dL (0.0-11.9); Sodium Urine < 5 mmol/L (40-220)
[2019-07-13 19:25] LABS: Creatinine, Urine 69 mg/dL (30.0-125.0)
[2019-07-13 19:28] LABS: Urine Bacteria NONE SEEN /hpf (None Seen); Urine Blood Negative /uL (Negative); Urine Hyaline Cast FEW /lpf (0 - 2); Urine Mucus FEW (None Seen); Urine Specific Gravity 1.024 (1.001-1.035); Urine WBC 2 /hpf (0 - 3)
[2019-07-13] MEDS: PANTOPRAZOLE 40 MG/10 ML VIAL INJ IV SCH (22:39)
[2019-07-13 22:53] VITALS: BP 91/54
[2019-07-13 23:00] VITALS: BP 91/32
--- NOTE | 2019-07-13 23:00 | NUR ---
confusion pt confused, pulled out L ac peripheral iv, skin intact. 2 unsuccessful attempts at iv insertion. 2329 paged hospitalist regarding sustained bp in 80's systolic. 1 liter bolus ordered per hospitalist. 2334 iv insertion successful iv insertion from ED rn. fluid bolus initiated. left upper chest 22g and right shah 22g inserted via sterile technique. patent, flushed, asymptomatic. 0030 bp sustained systolic 100's, pt stable. vss. will continue to monitor.
[2019-07-13 23:15] VITALS: BP 92/39
[2019-07-13 23:30] VITALS: BP 95/46
[2019-07-13 23:45] VITALS: BP 93/34
[2019-07-14] VITALS (85 sets, daily range): BP systolic 71–149; BP diastolic 25–74
[2019-07-14] MEDS: ALBUMIN 25% 50 ML IV SCH (03:19)
[2019-07-14] MEDS: NOREPINEPHRINE 8 MG/250ML KIT 250 ML IV SCH ×2 (04:01→16:33)
--- NOTE | 2019-07-14 04:01 | NUR ---
blood pressure fluid bolus unsuccessful for bp. systolic sustained in 70's. Levophed started per md Mosher's orders. bp 73/26 upon initiation of levophed. pt is resting in bed. pulses palpable. respiration even and unlabored.
[2019-07-14 04:02] LABS: Hemoglobin 8.5 g/dL (13.5-17.5)
[2019-07-14 04:06] LABS: Hematocrit 25.8 % (41.0-53.0); Mean Corpuscular Hemoglobin 33.7 pg (28.0-32.0); Mean Corpuscular Volume 102.1 fL (80.0-100.0); Platelet Count (auto) 78 10^3/uL (140-450); Red Blood Cells 2.53 10^6/uL (4.5-5.90); Red Cell Distribution Width 16.5 % (11.8-14.3); White Blood Cell 16.8 10^3/uL (4.4-10.8)
[2019-07-14 04:21] LABS: INR 1.79 (0.9-1.15)
[2019-07-14 04:31] LABS: Potassium 4.9 mmol/L (3.5-5.1)
[2019-07-14 04:37] LABS: BUN/Creatinine Ratio 57.7; Bilirubin, Total 1.5 mg/dL (0.2-1.0); Total Protein 6.5 g/dL (6.4-8.2); Uric Acid 7.9 mg/dL (3.5-7.2)
[2019-07-14 04:39] LABS: Basophils % (manual) 0 (0.0-2.0); Blast Cells 0; Eosinophils % (manual) 0 (0-7); Metamyelocytes % 0; Myelocytes % 0; Promyelocytes % 0; Reactive Lymphocytes 0
--- NOTE | 2019-07-14 05:00 | NUR ---
full bed bath and linen change done at this time skin assessed for any changes. tolerated well. vital signs stable. will continue to monitor
[2019-07-14] MEDS: PIPERACILLIN-TAZOB 3.375GM 100 ML IV SCH ×2 (05:49)
[2019-07-14 06:11] LABS: Band Neutrophils % (manual) 7; Lymphocytes % (manual) 11 (10.0-50.0); Monocytes % (manual) 9 (0-12)
[2019-07-14] MEDS: OCTREOTIDE ACETATE 500 MCG in SODIUM CHL 0.9% 99 ML IV SCH ×3 (06:15→17:30)
--- NOTE | 2019-07-14 07:15 | NUR ---
SHIFT OPENING NOTE PATIENT AOX1, MOVING ALL EXTREMITIES. ABDOMEN LARGE ROUND, AND TENDER TO TOUCH. DAVE DRAINING CLEAR, YELLOW URINE, BAG FREE OF KINKS AND HUNG BELOW BLADDER. SCD'S BILATERALLY. SKIN INTEGRITY SEE INTERVENTION. PLAN OF CARE DISCUSSED WITH PATIENT WITH SOME UNDERSTANDING
--- NOTE | 2019-07-14 08:01 | NUR ---
PICC CONSENTS OBTAINED Addendum: 07/14/19 at 1057 by Eric Whatley RN TIME 08
--- NOTE | 2019-07-14 08:21 | NUR ---
FAMILY DAUGHTER GINI CALLED AWAITING CALLBACK
--- NOTE | 2019-07-14 08:47 | NUR ---
Assessment Pt is 69 yr old confused male. Pt lives with family members and has a daughter, Halley, assists with ADL's, cooking and cleaning and is his emergency contact at [phone]. SW recently talked to pt, during prior admit, and decided to call the pt's daughter Halley to get some insight. Prior to admit, and currently, pt was ambulatory. Pt was previously admitted recently with a new diagnosis of "liver cancer." Pt previously stated that he is doing alright emotionally and will receive tx as an outpatient with a specialist. Pt's daughter stated that he was readmitted due to "bloody vomit and blood in his stool." Pt gets $2,200 monthly through [facility] and longterm and has no AD on file. Pt's daughter will transport pt home upon d/c. Pt's daughter stated that she can't think of any further needs, in the home, that her father will have upon d/c. Further needs will be assessed closer to d/c. Addendum: 07/14/19 at 0901 by RUPALI VASQUEZ Amended: Links added.
[2019-07-14] MEDS: LACTULOSE 20Gm/30ML SOLN PO SCH (09:23)
[2019-07-14] MEDS: PANTOPRAZOLE 40 MG/10 ML VIAL INJ IV SCH ×2 (09:23→20:52)
[2019-07-14] MEDS: SODIUM BICARBONATE 50ML VIAL 50 ML in SOD CHL 0.45% 1,000 ML IV SCH (09:23)
[2019-07-14] MEDS: PIPERACILLIN-TAZOB 2.25GM 50 ML IV SCH ×3 (11:37→23:27)
--- NOTE | 2019-07-14 12:09 | NUR ---
DR. NOYOLA AT BEDSIDE
--- NOTE | 2019-07-14 12:15 | NUR ---
WOUND CARE NOTE: IN TO SEE PATIENT AT THIS TIME PER WOUND CARE CONSULT REQUEST. PATIENT WAS NOTED UPON ADMIT TO HAVE WOUNDS. WOUND PHOTOS TAKEN AT THAT TIME BY BEDSIDE NURSE FOR REFERENCE. PATIENT ADMITTED TO [facility] WITH DIAGNOSIS OF SEPSIS/ALOC. CURRENT VERITO SCORE IS 13. PATIENT IS MAX ASSIST FOR HIS ADL'S, INCLUDING TURNING/REPOSITIONING. PATIENT NOTED TO HAVE A SCABBED SKIN TEAR TO THE LEFT FOREARM, AND LINEAR SCRATCHES TO THE LEFT PALOMARES. THESE WOUNDS ARE NOT OPEN OR DRAINING. LEFT OPEN TO AIR. PATIENT ALSO HAS A SMALL 1.5 X 1 CM INTACT DTI TO THE LEFT SACRUM. WOUND IS PURPLE, WITH BRIGHT RED, BLANCHABLE PERIWOUND. OPTIFOAM GENTLE SACRAL DRESSING APPLIED. SPECIALTY AIR BED ORDERED. PATIENT TO BE PLACED, PENDING DELIVERY BY SOHEILA DAVIS. PATIENT REPOSITIONING INTO SUPINE POSITION, TO GET PATIENT READY FOR BEDSIDE PROCEDURE. RECOMMEND: FREQUENT TURN SCHEDULE Q 2 HOURS PRN CONDITION PERMITS, WITH PRESSURE REDISTRIBUTION USING PILLOWS/WEDGES, BID/PRN APPLICATION WITH MOISTURE BARRIER CREAM, OPTIFOAM GENTLE SACRAL DRESSING, SPECIALTY AIR MATTRESS, SKIN/WOUND CARE PLAN, DIETARY CONSULT, CONTINUED MONITORING BY WOUND CARE TEAM. Addendum: 07/14/19 at 1622 by Marianne Estrada RN Amended: Links added.
--- NOTE | 2019-07-14 12:31 | NUR ---
WOUND CARE NURSE AT BEDSIDE
[2019-07-14] MEDS: ALBUMIN 25% 100 ML IV SCH ×2 (13:00→20:52)
--- NOTE | 2019-07-14 13:15 | NUR ---
ULTRASOUND AT BEDSIDE FOR PARACENTESIS
--- NOTE | 2019-07-14 13:55 | NUR ---
PARACENTESIS COMPLETE 5950 REMOVED PATIENT TOLERATED WELL
--- NOTE | 2019-07-14 14:10 | NUR ---
PICC NURSE AT BEDSIDE
--- NOTE | 2019-07-14 14:14 | NUR ---
PARACENTESIS FLUID SENT TO LAB
[2019-07-14 14:30] LABS: Hematocrit 27.2 % (41.0-53.0); Hemoglobin 9.1 g/dL (13.5-17.5)
--- NOTE | 2019-07-14 14:45 | NUR ---
PICC: UNSUCCESSFUL PICC LINE ATTEMPT. PATIENT ALSO SHOWS SIGNS OF EXCESSIVE BLEEDING FROM SITE. DRESSING APPLIED. MD BENITEZ AT BEDSIDE STATING HE WILL FOLLOW UP WITH PATIENT AND ESTABLISH A CENTRAL LINE. PRIMARY RN AWARE.
--- NOTE | 2019-07-14 19:30 | NUR ---
OPENING ASSUMED CARE OF PT ALERT AND ORIENTED TO SELF ONLY. RESPIRATIONS EVEN AND NON LABORED, 02 SAT 99% ON ROOM AIR. SR ON HEART NURSE. RIJ 3L IN PLACE, PATENT, CLEAN, DRY, INTACT, AND RUNNING MEDICATIONS (SEE IV SPREADSHEET). BOWEL SOUNDS PRESENT. DAVE CATHETER PATENT AND DRAINING YELLOW URINE TO GRAVITY. SKIN ASSESSMENT DONE, NO NEW BREAKDOWN NOTED. PT CONFUSED AND ATTEMPTING TO PULL AT LEADS, RN SITTING WITH PT. BED IN LOWEST LOCKED POSITION, IN FULL VIEW OF NURSES STATION. NO INDICATION OF PAIN, AND PT STATED "NO" WHEN ASKED IF IN PAIN. FALL PRECAUTIONS IN PLACE. PT REORIENTED TO SITUATION, PLACE, TIME. VITAL SIGNS STABLE. WILL CONTINUE TO MONITOR.
[2019-07-15] VITALS (91 sets, daily range): BP systolic 80–127; BP diastolic 35–64
[2019-07-15] MEDS: OCTREOTIDE ACETATE 500 MCG in SODIUM CHL 0.9% 99 ML IV SCH (03:32)
[2019-07-15 03:54] LABS: Basophils # (auto) 0.1 uL; Eosinophils # (auto) 0 uL; Eosinophils % (auto) 0.1 % (0.0-7.0); Hemoglobin 8.8 g/dL (13.5-17.5); Monocytes # (auto) 1.3 uL; Nucleated Red Blood Cells % 0.1 %; Red Cell Distribution Width 16.6 % (11.8-14.3)
[2019-07-15 03:59] LABS: Basophils % (auto) 0.6 % (0.0-2.0); Hematocrit 26.6 % (41.0-53.0); Lymphocytes # (auto) 1.5 uL; Lymphocytes % (auto) 9.2 % (10.0-50.0); Mean Corpuscular Hemoglobin 33.8 pg (28.0-32.0); Mean Corpuscular Volume 102.2 fL (80.0-100.0); Neutrophils # (auto) 13.7 uL; Neutrophils % (auto) 82.1 % (37.0-80.0); Platelet Count (auto) 52 10^3/uL (140-450); Red Blood Cells 2.61 10^6/uL (4.5-5.90); White Blood Cell 16.6 10^3/uL (4.4-10.8)
[2019-07-15 04:14] LABS: Albumin 2.5 g/dL (3.4-5.0); Calcium 8.2 mg/dL (8.5-10.1); Potassium 4.4 mmol/L (3.5-5.1)
[2019-07-15 04:19] LABS: BUN/Creatinine Ratio 47.3; Bilirubin, Total 2.7 mg/dL (0.2-1.0); Total Protein 6.8 g/dL (6.4-8.2)
[2019-07-15] MEDS: ALBUMIN 25% 100 ML IV SCH (04:22)
--- NOTE | 2019-07-15 04:25 | NUR ---
FULL BED BATH AND LINEN CHANGE DONE AT THIS TIME. SKIN ASSESSED FOR ANY CHANGES. PT TRANSFERRED TO SPECIALTY MATTRESS. TOLERATED ALL WELL. WILL CONTINUE TO MONITOR. VITAL SIGNS STABLE
[2019-07-15] MEDS: SODIUM BICARBONATE 50ML VIAL 50 ML in SOD CHL 0.45% 1,000 ML IV SCH (05:12)
[2019-07-15] MEDS: PIPERACILLIN-TAZOB 2.25GM 50 ML IV SCH (05:12)
[2019-07-15] MEDS: LACTULOSE 20Gm/30ML SOLN PO SCH (10:09)
[2019-07-15] MEDS: PANTOPRAZOLE 40 MG/10 ML VIAL INJ IV SCH ×2 (10:09→22:00)
--- NOTE | 2019-07-15 10:44 | NUR ---
HOSPITALIST/FAMILY AT BEDSIDE DR NOYOLA UPDATED ON PATIENT'S STATUS AND CURRENT DRIPS. DR NOYOLA DISCUSSED PLAN OF CARE AND PROGNOSIS WITH PATIENT AND PATIENT'S SPOUSE YENIFER AT BEDSIDE, ALL QUESTIONS AND CONCERNS ADDRESSED. YENIFER AND PATIENT VERBALIZED UNDERSTANDING. ORDERS WILL BE CARRIED OUT.
--- NOTE | 2019-07-15 10:44 | NUR ---
NUTRITION CONSULT/ASSESSMENT NOTES Please refer to link notes of nutrition screen form filed under the intervention section of the plan of care for further details. Est. Needs: 1850 kcal to 2150 kcal (30-35 kcal/kgBW), 61 gms to 74 gms pro (1.0-1.2 gms/kgBW). Will continue to monitor pertinent labs and reassess nutrient need prn Thank you for this consult. Addendum: 07/15/19 at [address] Amended: Links added.
[2019-07-15] MEDS ORDERED: NOREPINEPHRINE 8 MG/250ML KIT 0 ML IV ONE (16:36)
--- NOTE | 2019-07-15 16:59 | NUR ---
SS consult SS consult received for Hospice Evaluation. SW discussed hospice option with pt. Pt stated that he decided that he would like to go on hospice with [facility], which is the one Dr. Tovar, his Primary DrPaula is connected to. Pt stated that he has good family supports and that he is doing alright emotionally. SW educated pt on comfort care and the assistance he can get in the home.
[2019-07-15] MEDS: NOREPINEPHRINE 8 MG/250ML KIT 250 ML IV SCH (17:02)
--- NOTE | 2019-07-15 18:00 | NUR ---
Family at bedside Patient's daughter Halley at bedside.
--- NOTE | 2019-07-15 19:40 | NUR ---
END OF SHIFT NOTE PATIENT RESTING IN BED WITH EYES CLOSED, NO DISTRESS NOTED, RESPIRATIONS EVEN AND UNLABORED ON ROOM AIR, VSS AND DOCUMENTED. FALL AND SAFETY PRECAUTIONS IN PLACE, ENDORSED CONTINUED CARE TO ENFORCEMENT SAFETY OFFICER RN.
--- NOTE | 2019-07-15 19:45 | NUR ---
OPEN ASSUMED CARE OF MALE PT ALERT AND ORIENTED X 3. PT ON ROOM AIR. SR ON CHANGE NUMBER OPERATOR. PT WITH R IJ TLC INFUSING LEVOPHED GTT AT 2 MCG/MIN, AND 0.45 NS WITH 1 AMP HCO3- AT 50 ML/HR. DRESSING CDI. ALL PORTS PATENT. DAVE TO GRAVITY DRAINING CLEAR YELLOW URINE. PT WITH OPTIFOAM GENTLE SACRAL DRESSING TO BLANCHABLE PINK SKIN. AREA OF BRUISING AND HEALING SKIN TEAR TO L. FOREARM. PT ON SPECIALTY AIR MATTRESS WITH PILLOWS USED TO OFFLOAD BONY PROMINENCES. BED IN LOWEST LOCKED POSITION. SIDE RAILS UP X 2. CALL LEROY IN REACH. PT DENIES PAIN. PT IN FULL VIEW OF RN STATION. WILL CONTINUE TO MONITOR.
--- NOTE | 2019-07-15 22:00 | NUR ---
NUTRITION/HYDRATION PT ABLE TO DRINK WATER INDEPENDENTLY. ABLE TO EAT PEACHES INDEPENDENTLY.
[2019-07-16] VITALS (96 sets, daily range): BP systolic 80–121; BP diastolic 31–60
--- NOTE | 2019-07-16 03:02 | NUR ---
Patient bathe/linen change Patient given PARTIAL bath. Skin integrity assessed for any changes. Linens changed. Patient repositioned for comfort.
[2019-07-16 03:54] LABS: Basophils # (auto) 0 uL; Basophils % (auto) 0.1 % (0.0-2.0); Eosinophils # (auto) 0.1 uL; Eosinophils % (auto) 0.5 % (0.0-7.0); Neutrophils # (auto) 11.2 uL; Red Cell Distribution Width 16.1 % (11.8-14.3)
[2019-07-16 03:58] LABS: Hematocrit 22.7 % (41.0-53.0); Hemoglobin 7.7 g/dL (13.5-17.5); Lymphocytes # (auto) 1.4 uL; Lymphocytes % (auto) 10.2 % (10.0-50.0); Mean Corpuscular Hemoglobin 33.8 pg (28.0-32.0); Mean Corpuscular Hgb Conc. 33.8 g/dL (32.0-36.0); Mean Corpuscular Volume 100.1 fL (80.0-100.0); Monocytes # (auto) 0.9 uL; Monocytes % (auto) 6.5 % (0.0-12.0); Neutrophils % (auto) 82.7 % (37.0-80.0); Nucleated Red Blood Cells % 0.2 %; Platelet Count (auto) 54 10^3/uL (140-450); Red Blood Cells 2.27 10^6/uL (4.5-5.90); White Blood Cell 13.6 10^3/uL (4.4-10.8)
[2019-07-16 04:13] LABS: Albumin 2.5 g/dL (3.4-5.0); Calcium 8.1 mg/dL (8.5-10.1); Potassium 3.8 mmol/L (3.5-5.1)
[2019-07-16 04:17] LABS: BUN/Creatinine Ratio 41.3; Bilirubin, Total 3.6 mg/dL (0.2-1.0); Total Protein 6.6 g/dL (6.4-8.2)
--- NOTE | 2019-07-16 08:30 | NUR ---
TRANSFUSION STARTED ONE UNIT FFP TRANSFUSING ORDERED BY MD AND TIME REQUESTED BY INTERVENTIONAL RADIOLOGIST PRIOR TO SCHEDULED PROCEDURE. DISCUSSED S/S OF WITH PATIENT OF TRANSFUSION REACTION, PATIENT VERBALIZED UNDERSTANDING. VSS AND DOCUMENTED. COMFORT MEASURES PROVIDED, WILL CONTINUE TO MONITOR.
--- NOTE | 2019-07-16 08:47 | NUR ---
15 MIN TRANSFUSION REASSESSMENT VSS AND DOCUMENTED, NO S/S NOTED OF TRANSFUSION REACTION. PATIENT DENIES ANY PAIN OR DISCOMFORT AT THIS TIME. WILL CONTINUE TO MONITOR.
--- NOTE | 2019-07-16 09:05 | NUR ---
FFP TRANSFUSION COMPLETED ONE UNIT FFP ORDERED BY MD TRANSFUSION COMPLETED. VSS AND DOCUMENTED, PATIENT DENIES ANY PAIN OR DISCOMFORT, NO S/S NOTED OF TRANSFUSION REACTION. WILL TRANSFUSE PLATELETS ORDERED BY MD AND REQUESTED BY INTERVENTIONAL RADIOLOGIST PRIOR TO PROCEDURE THIS MORNING.
[2019-07-16] MEDS ORDERED: fentaNYL CITRATE 100 MCG/2 ML VL IV ONE (09:15)
--- NOTE | 2019-07-16 09:25 | NUR ---
TRANSFUSION STARTED ONE UNIT PLATELETS TRANSFUSING ORDERED BY AND REQUESTED BY DR PUCKETT. VSS AND DOCUMENTED, DISCUSSED S/S OF TRANSFUSION REACTION TO MONITOR WITH PATIENT, VERBALIZED UNDERSTANDING. WILL CONTINUE TO MONITOR.
--- NOTE | 2019-07-16 09:55 | NUR ---
PLATELET TRANSFUSION COMPLETED VSS AND DOCUMENTED, PATIENT DENIES PAIN OR DISCOMFORT AT THIS TIME. NO S/S OF TRANSFUSION REACTION NOTED.
[2019-07-16] MEDS: PANTOPRAZOLE 40 MG/10 ML VIAL INJ IV SCH ×2 (10:00→22:01)
[2019-07-16] MEDS: LACTULOSE 20Gm/30ML SOLN PO SCH (10:00)
--- NOTE | 2019-07-16 12:30 | NUR ---
DR PUCKETT AT BEDSIDE FOR SCHEDULED PROCEDURE, VSS AND DOCUMENTED. PATIENT ALERT AND ORIENTED X4, NO DISTRESS NOTED, RESPIRATIONS EVEN AND UNLABORED. PATIENT MEDICATED ORDERED BY .
[2019-07-16] MEDS ORDERED: LIDOCAINE 1% (LOCAL ANESTH.) PF 5ml SDV ONE (12:36)
--- NOTE | 2019-07-16 12:40 | NUR ---
MEDICATION ADMINISTRATION ORDER READJUSTMENT FENTANYL [address] PUCKETT - ONLY ADMINISTERED 25 MCG IV, PER MD ORDER - WASTED 75 MCG AND VERIFIED BY .
[2019-07-16] MEDS: SODIUM BICARBONATE 50ML VIAL 50 ML in SOD CHL 0.45% 1,000 ML IV SCH ×2 (12:56→23:15)
[2019-07-16] MEDS ORDERED: PANT40TA2 PO (13:31)
--- NOTE | 2019-07-16 19:30 | NUR ---
REPORT RECEIVED, ASSUMED CARE.
[2019-07-17] VITALS (30 sets, daily range): BP systolic 82–108; BP diastolic 29–60
[2019-07-17] MEDS: NOREPINEPHRINE 8 MG/250ML KIT 250 ML IV SCH
--- NOTE | 2019-07-17 01:53 | NUR ---
PT REQUESTING TO HAVE PULSE REMOVED DUE TO PT FEELS IT IS KIND OF RESTRICTIVE WHEN HE WISHES TO TAKE A SIP OF WATER. REMOVED PULSE PER PT REQUEST.
--- NOTE | 2019-07-17 02:57 | NUR ---
CANCELLED AM LABS, PT DUE FOR DISCHARGE WITH HOSPICE THIS AM, PT AND FAMILY AWARE.
--- NOTE | 2019-07-17 06:31 | NUR ---
NOTIFIED BLOOD BANK FOR UNIT OF BLOOD, [employer] STATED HE WOULD GET READY PHILLY.
--- NOTE | 2019-07-17 07:46 | NUR ---
OPENING Received report from Eric SAINI. Care initiated and initial assessment completed.
[2019-07-17] MEDS: PANTOPRAZOLE 40 MG/10 ML VIAL INJ IV SCH (10:00)
[2019-07-17] MEDS: LACTULOSE 20Gm/30ML SOLN PO SCH (10:00)
--- NOTE | 2019-07-17 10:30 | NUR ---
SNACK Patient refused breakfast, ate one Jell-O.
--- NOTE | 2019-07-17 10:30 | NUR ---
BEDSIDE Dr. Zambrano bedside at this time.
--- NOTE | 2019-07-17 10:42 | NUR ---
CALLED DAUGHTER Daughter will be able to pick the patient up at 1800.
--- NOTE | 2019-07-17 12:52 | NUR ---
PAGED SS Left request for return phone call in regards to status with [facility].
--- NOTE | 2019-07-17 12:55 | NUR ---
PAGED [facility] Spoke to [facility], no information available, stated they do not have patients information and will do more research and call me in the ICU.
--- NOTE | 2019-07-17 13:19 | NUR ---
Discharge planning per SS consult, patient has an order for a hospice eval. Referral sent to [facility] as per request by patient/family as noted by SW2 Indigo Rosa during interview process. Placed a follow up call to rep Francois and was advised they will send a nurse out shortly for eval and set up for discharge.
--- NOTE | 2019-07-17 14:27 | NUR ---
DISCHARGING PATIENT Patient is being picked up by his , at this time the patient is able to stand for no more than a minute before becoming fatigued. We are communicating with Case Management and Hospice to arrange for safe transfer to home.
--- NOTE | 2019-07-17 14:29 | NUR ---
SPOKE TO CASE MANAGEMENT Family needs to sign hospice consents for the patient to be either transferred by hospice at this time or at a later time.
--- NOTE | 2019-07-17 15:47 | NUR ---
SPOKE TO MARCO ANTONIO Hospice nurse is on her way to help with transfer.
--- NOTE | 2019-07-17 17:23 | NUR ---
HOSPICE NURSE BEDSIDE
--- NOTE | 2019-07-17 17:23 | NUR ---
SPOKE TO DAUGHTER Spoke to Halley, explained that the patient will need assistance getting into the house, she understands and will be there when her mother and father get home.
--- NOTE | 2019-07-17 17:25 | NUR ---
Discharge planning per SS consult, patient has orders to dc home with hospice. Patient and family choose [facility]. [facility] nurse is at bedside conducting evaluation. Please contact [facility] client services representative Priscila at [phone] for transportation arrangements after evaluation. Nurse Kc is aware of dc plan.
--- NOTE | 2019-07-17 18:35 | NUR ---
DISCHARGED Patient has left in wheelchair to daughter [employer] car, patient tolerated well.
== END 2019-07-17 18:36 | disposition hospice, home (50) | DRG 871 ==
LOC: EDBD 04:50 → ER 04:50 → TELE 04:51 → ICU WEST 22:30
PROVIDERS: ADMIT Nurse Practitioner Acute Care; ATTEND Internal Medicine
PROC: 0W9G3ZZ Drainage of Peritoneal Cavity, Percutaneous Approach (ICD-10-PCS; 2019-07-14)
PROC: 02HV33Z Insertion of Infusion Device into Superior Vena Cava, Percutaneous Approach (ICD-10-PCS; 2019-07-15)
PROC: 30233K1 Transfusion of Nonautologous Frozen Plasma into Peripheral Vein, Percutaneous Approach (ICD-10-PCS; principal; 2019-07-16)
PROC: 30233R1 Transfusion of Nonautologous Platelets into Peripheral Vein, Percutaneous Approach (ICD-10-PCS; 2019-07-16)
PROC: 0W9G30Z Drainage of Peritoneal Cavity with Drainage Device, Percutaneous Approach (ICD-10-PCS; 2019-07-16)
DX: A41.9 Sepsis, unspecified organism (principal); G93.41 Metabolic encephalopathy; E43 Unspecified severe protein-calorie malnutrition; N17.0 Acute kidney failure with tubular necrosis; K92.0 Hematemesis; R64 Cachexia; R57.9 Shock, unspecified; D68.9 Coagulation defect, unspecified; R18.0 Malignant ascites; Z68.1 Body mass index [BMI] 19.9 or less, adult; C22.9 Malignant neoplasm of liver, not specified as primary or secondary; D64.9 Anemia, unspecified; K72.90 Hepatic failure, unspecified without coma; E86.1 Hypovolemia; K74.60 Unspecified cirrhosis of liver; D69.6 Thrombocytopenia, unspecified; E87.5 Hyperkalemia; N18.3 Chronic kidney disease, stage 3 (moderate); B19.20 Unspecified viral hepatitis C without hepatic coma; D69.59 Other secondary thrombocytopenia; I12.9 Hypertensive chronic kidney disease with stage 1 through stage 4 chronic kidney disease, or unspecified chronic kidney disease; Z51.5 Encounter for palliative care; Z85.05 Personal history of malignant neoplasm of liver; Z79.899 Other long term (current) drug therapy
CPT/HCPCS: 10022; 36415; 36600; 70450; 71045; 74176; 76942; 80048; 80053; 80307; 80320; 81001; 82140; 82550; 82570; 82805; 82962; 83605; 83615; 83735; 84156; 84300; 84443; 84484; 84550; 85007; 85014; 85018; 85025; 85027; 85610; 85730; 86850; 86900; 86901; 87040; 87081; 89051; 93005; 94640; 96361; 96365; 96367; 96375; C9113; G0378; J0610; J0696; J1815; J2543; P9047